=== PATIENT | female | born 1985 | race Hispanic/Latino ===

== ENCOUNTER 2021-05-26 14:34 | Outpatient (CLI) | payer OTHER ==
[2021-05-27 00:48] LABS: SARS-CoV-2 PCR by NAA Not Detected (NotDetected)
== END 2021-05-26 14:35 | disposition home or self-care (01) ==
LOC: CSHLAB 14:34
PROVIDERS: ATTEND Obstetrics & Gynecology
DX: Z01.812 Encounter for preprocedural laboratory examination (principal); Z20.822 Contact with and (suspected) exposure to COVID-19
CPT/HCPCS: U0003; U0005

== ENCOUNTER 2021-05-31 18:00 | Inpatient (IN) | payer MEDICAID, OTHER, SELFPAY ==
[~2021-05-31 18:00] MED LIST: Bupivacaine 0.25% HCL 30 ML VIAL ONE
[2021-05-31] MEDS ORDERED: Ibuprofen 800 MG TAB PO PRN (19:37)
[2021-05-31] MEDS ORDERED: Lidocaine 1% (PF) 30 ML VIAL SC PRN (19:37)
[2021-05-31] MEDS ORDERED: Acetaminophen 500 MG TAB PO PRN (19:37)
[2021-05-31] MEDS ORDERED: Ondansetron PF 4 MG/2 ML Vial IVP PRN (19:37)
[2021-05-31] MEDS ORDERED: Butorphanol Tartrate 1 MG/ML VIAL SLOW IVP PRN (19:37)
[2021-05-31] MEDS ORDERED: hydrALAZINE 20 MG/ML VIAL SLOW IVP PRN (19:37)
[2021-05-31] MEDS ORDERED: Promethazine HCl 25 MG/ML VIAL IM PRN (19:37)
[2021-05-31] MEDS ORDERED: NS w/ Oxytocin 30 units 500 ML IVPB SCH (19:45)
[2021-05-31] MEDS ORDERED: NS w/ Oxytocin 30 units 500 ML IV SCH (19:45)
[2021-05-31] MEDS: Lactated Ringer's 1,000 ML IV SCH (19:45)
[2021-05-31 20:03] VITALS: BMI 42.0
[2021-05-31] MEDS ORDERED: Carboprost 250 MCG/ML AMP IM PRN (20:11)
[2021-05-31] MEDS ORDERED: Misoprostol 200 MCG TAB PR PRN (20:11)
[2021-05-31 20:23] LABS: Hemoglobin 12.1 g/dL (12.0-15.5); Mean Corpuscular HGB CONC 33.2 g/dL (32.0-36.0); Mean Corpuscular Hemoglobin 28.9 pg (27.0-33.0); Mean Corpuscular Volume 86.9 fl (81.6-98.3); Platelet Count 219 10x3/uL (150-450); RBC Distribution Width 13.8 % (11.5-14.5); Red Blood Cell (RBC) Count 4.19 10x6/uL (3.90-5.03); White Blood Cell (WBC) Count 9.7 10x3/uL (3.5-10.5)
[2021-05-31 20:39] LABS: ALT (SGPT) 22 U/L (8-55); AST (SGOT) 21 U/L (5-34); Albumin 3.3 g/dL (3.5-5.0); Alkaline Phosphatase 129 U/L (40-110); Anion Gap 14 mmol/L (10-20); BUN (Urea Nitrogen) 8 mg/dL (7.0-18.7); Bilirubin, Total 0.2 mg/dL (0.2-1.2); Calc. Creatinine Clearance 222 mL/min (70-130); Calcium 9.2 mg/dL (7.8-10.44); Carbon Dioxide 21 mmol/L (22-29); Chloride 108 mmol/L (98-107); Glucose 78 mg/dL (70-105); Potassium 4.3 mmol/L (3.5-5.1); Protein, Total 6.3 g/dL (6.0-8.3); Sodium 139 mmol/L (136-145)
[2021-05-31] MEDS: Misoprostol 100 MCG TAB VAG SCH (20:45)
[2021-05-31 20:57] LABS: Syphilis Antibody Nonreactive (Nonreactive); Syphilis Antibody Index 0.05 S/CO (<1.00 Non-Reactive)
[2021-05-31 20:58] LABS: Hep B Surf Ag Non-Reactive S/CO (NonReactive)
[2021-05-31 21:08] LABS: HBSAg Index 0.15 S/CO (0-0.99)
[2021-06-01] MEDS ORDERED: Fentanyl 2 mcg/Bup 0.1% Cadd 100 ML ONE (01:37)
[2021-06-01] MEDS: Misoprostol 100 MCG TAB VAG SCH ×2 (01:53→04:49)
[2021-06-01] MEDS: Lactated Ringer's 1,000 ML IV SCH ×2 (02:32→19:08)
[2021-06-01] MEDS ORDERED: Lactated Ringer's 500 ML IV PRN (02:35)
[2021-06-01] MEDS ORDERED: Ondansetron PF 4 MG/2 ML Vial IVP PRN ×2 (02:35→12:04)
[2021-06-01] MEDS ORDERED: Promethazine HCl 25 MG/ML VIAL IM PRN ×2 (02:35→12:04)
[2021-06-01] MEDS ORDERED: ePHEDrine Sulfate 50 MG/10 ML VIAL SLOW IVP PRN (02:35)
[2021-06-01] MEDS ORDERED: diphenhydrAMINE 50 MG/ML VIAL IVP PRN (02:35)
[2021-06-01] MEDS ORDERED: Acetaminophen 325 MG TAB PO PRN (02:35)
[2021-06-01] MEDS ORDERED: Hydrocerin (Eucerin) Cream 120 gm Jar TOP PRN (02:35)
[2021-06-01] MEDS ORDERED: Naloxone HCl 0.4 mg/ml Vial IVP PRN ×2 (02:35)
[2021-06-01] MEDS ORDERED: Communication Order-Pharmacy FS SCH (02:45)
[2021-06-01] MEDS ORDERED: Fentanyl 2 mcg/Bupivacaine 0.1% Cassette 100 ML EPIDURAL SCH (02:45)
[2021-06-01] MEDS ORDERED: hydrALAZINE 20 MG/ML VIAL SLOW IVP PRN ×2 (10:39→12:04)
[2021-06-01] MEDS ORDERED: Calcium Gluconate 4.6 MEQ in Sodium Chloride 0.9% 100 ML IVPB PRN (10:40)
[2021-06-01] MEDS ORDERED: Magnesium Sulfate 20 gm/500 ml 20 GM/500 ML BAG ONE (10:46)
[2021-06-01 10:52] LABS: ALT (SGPT) 21 U/L (8-55); AST (SGOT) 23 U/L (5-34); Albumin 3.1 g/dL (3.5-5.0); Alkaline Phosphatase 124 U/L (40-110); Anion Gap 13 mmol/L (10-20); BUN (Urea Nitrogen) 8 mg/dL (7.0-18.7); Bilirubin, Total 0.4 mg/dL (0.2-1.2); Calc. Creatinine Clearance 230 mL/min (70-130); Calcium 8.6 mg/dL (7.8-10.44); Carbon Dioxide 21 mmol/L (22-29); Chloride 107 mmol/L (98-107); Globulin 2.8 g/dL (2.4-3.5); Glucose 86 mg/dL (70-105); Potassium 4.4 mmol/L (3.5-5.1); Protein, Total 5.9 g/dL (6.0-8.3); Sodium 137 mmol/L (136-145)
[2021-06-01] MEDS: Magnesium Sulfate 20 gm/500 ml 20 GM/500 ML BAG IVPB SCH ×2 (10:52→19:06)
[2021-06-01] MEDS ORDERED: Magnesium Sulfate 20 GM/WATER 500 ML BAG IVPB SCH (11:00)
[2021-06-01 11:46] LABS: Magnesium 3.6 mg/dL (1.6-2.6)
[2021-06-01] MEDS ORDERED: diphenhydrAMINE 25 MG CAP PO PRN (12:04)
[2021-06-01] MEDS ORDERED: Benzocaine-Menthol 82.5 ML CAN TOP PRN (12:04)
[2021-06-01] MEDS ORDERED: Milk Of Magnesia 30 ML UDCUP PO PRN (12:04)
[2021-06-01] MEDS ORDERED: Bisacodyl 10 MG SUPP PR PRN (12:04)
[2021-06-01] MEDS ORDERED: Misoprostol 200 MCG TAB VAG PRN (12:04)
[2021-06-01] MEDS ORDERED: Boostrix 0.5 ML (Tdap) VIAL IM ONE (12:04)
[2021-06-01] MEDS ORDERED: Lanolin Ointment 7 GM TUBE TOP PRN (12:04)
[2021-06-01] MEDS ORDERED: Preparation H Ointment 28 GM TUBE PR PRN (12:04)
[2021-06-01] MEDS ORDERED: NS w/ Oxytocin 30 units 500 ML IV SCH (12:04)
[2021-06-01 12:41] LABS: INR-International Normal Ratio 0.9; PTT 24.8 sec (22.0-33.0); Prothrombin Time 10.2 sec (9.5-12.1)
[2021-06-01] MEDS ORDERED: Diphenoxylate HCl/Atropine Tablet PO SCH (13:00)
[2021-06-01] MEDS: Ibuprofen 800 MG TAB PO SCH ×2 (13:45→23:54)
[2021-06-01 16:22] LABS: Hemoglobin 11.3 g/dL (12.0-15.5); Mean Corpuscular Hemoglobin 28.7 pg (27.0-33.0); Mean Corpuscular Volume 86.8 fl (81.6-98.3); Mean Platelet Volume 11.4 fl (7.4-10.4); Platelet Count 246 10x3/uL (150-450); RBC Distribution Width 14.1 % (11.5-14.5); Red Blood Cell (RBC) Count 3.94 10x6/uL (3.90-5.03); White Blood Cell (WBC) Count 17.6 10x3/uL (3.5-10.5)
[2021-06-01] MEDS ORDERED: Diphenoxylate HCl/Atropine Tablet PO PRN (19:00)
[2021-06-01] MEDS: Docusate Calcium (SURFAK) 240 MG CAP PO SCH (23:54)
[2021-06-01] MEDS: Ferrous Sulfate 325 MG TAB PO SCH (23:54)
[2021-06-02] MEDS: Ibuprofen 800 MG TAB PO SCH ×3 (05:22→21:15)
[2021-06-02] MEDS: Magnesium Sulfate 20 gm/500 ml 20 GM/500 ML BAG IVPB SCH (05:22)
[2021-06-02] MEDS: Lactated Ringer's 1,000 ML IV SCH (08:43)
[2021-06-02] MEDS ORDERED: Prenatal Vitamin 1 TAB PO SCH (09:00)
[2021-06-02] MEDS: Docusate Calcium (SURFAK) 240 MG CAP PO SCH ×2 (11:02→21:16)
[2021-06-02 11:06] LABS: Hemoglobin 9.5 g/dL (12.0-15.5); Mean Corpuscular HGB CONC 32.2 g/dL (32.0-36.0); Mean Corpuscular Hemoglobin 28.6 pg (27.0-33.0); Mean Corpuscular Volume 88.9 fl (81.6-98.3); Mean Platelet Volume 11.1 fl (7.4-10.4); Platelet Count 216 10x3/uL (150-450); RBC Distribution Width 14.6 % (11.5-14.5); Red Blood Cell (RBC) Count 3.32 10x6/uL (3.90-5.03); White Blood Cell (WBC) Count 10.1 10x3/uL (3.5-10.5)
[2021-06-02] MEDS ORDERED: diphenhydrAMINE 25 MG CAP PO PRN (12:47)
[2021-06-02] MEDS ORDERED: Benzocaine-Menthol 82.5 ML CAN TOP PRN (12:47)
[2021-06-02] MEDS ORDERED: Lanolin Ointment 7 GM TUBE TOP PRN (12:47)
[2021-06-02] MEDS ORDERED: Preparation H Ointment 28 GM TUBE PR PRN (12:47)
[2021-06-02] MEDS ORDERED: Ondansetron PF 4 MG/2 ML Vial IVP PRN (12:47)
[2021-06-02] MEDS ORDERED: Milk Of Magnesia 30 ML UDCUP PO PRN (12:47)
[2021-06-02] MEDS ORDERED: Bisacodyl 10 MG SUPP PR PRN (12:47)
[2021-06-02] MEDS ORDERED: hydrALAZINE 20 MG/ML VIAL SLOW IVP PRN (12:47)
[2021-06-02] MEDS: Ferrous Sulfate 325 MG TAB PO SCH ×2 (14:40→16:42)
[2021-06-02 18:49] LABS: HIV (1/2) Antibody/Antigen Non-Reactive (NonReactive); HIV 1/2 INDEX 0.07 S/CO (<1.00)
[2021-06-03] MEDS: Ibuprofen 800 MG TAB PO SCH ×2 (05:11→14:00)
[2021-06-03 08:08] VITALS: BP 118/66; TEMP 98
[2021-06-03] MEDS: Ferrous Sulfate 325 MG TAB PO SCH (08:25)
[2021-06-03] MEDS: Docusate Calcium (SURFAK) 240 MG CAP PO SCH (08:26)
[2021-06-03] MEDS ORDERED: Prenatal Vitamin 1 TAB PO SCH (09:00)
[2021-06-03] MEDS ORDERED: Boostrix 0.5 ML (Tdap) VIAL IM ONE (12:47)
== END 2021-06-03 14:00 | disposition home or self-care (01) | DRG 806 ==
LOC: CSHLD 18:15 → CSHPP 06-02 12:30
PROVIDERS: ADMIT Family Medicine; ATTEND Family Medicine
PROC: 10E0XZZ Delivery of Products of Conception, External Approach (ICD-10-PCS; principal; 2021-06-01)
PROC: 0KQM0ZZ Repair Perineum Muscle, Open Approach (ICD-10-PCS; 2021-06-01)
PROC: 3E033VJ Introduction of Other Hormone into Peripheral Vein, Percutaneous Approach (ICD-10-PCS; 2021-06-01)
PROC: 3E0P7VZ Introduction of Hormone into Female Reproductive, Via Natural or Artificial Opening (ICD-10-PCS; 2021-06-01)
DX: O10.92 Unspecified pre-existing hypertension complicating childbirth (principal); O72.1 Other immediate postpartum hemorrhage; Z37.0 Single live birth; Z3A.38 38 weeks gestation of pregnancy; O26.03 Excessive weight gain in pregnancy, third trimester; O70.1 Second degree perineal laceration during delivery; O11.5 Pre-existing hypertension with pre-eclampsia, complicating the puerperium
CPT/HCPCS: 36415; 51702; 80053; 82570; 83735; 84156; 85027; 85384; 85610; 85730; 86780; 86850; 86900; 86901; 87340; 87389; J0360; J2405; J2590; J3475; J3490; J7120; S0020